=== PATIENT | male | born 1990 | race Hispanic/Latino ===

== ENCOUNTER 2025-07-28 20:11 | Emergency (ER) | payer SELFPAY ==
[2025-07-28] MEDS ORDERED: predniSONE 20 MG TAB ONE (20:56)
[2025-07-28] MEDS ORDERED: Famotidine 20 MG TAB ONE (20:57)
[2025-07-28] MEDS ORDERED: Albuterol 2.5 MG (3 mL) NEB ONE (21:10)
== END 2025-07-28 21:25 | disposition home or self-care (01) ==
LOC: CSHERS 20:11
DX: J20.9 Acute bronchitis, unspecified (principal); J06.9 Acute upper respiratory infection, unspecified; F17.200 Nicotine dependence, unspecified, uncomplicated
CPT/HCPCS: 71045; 94640; 94760; J7512; J7611